=== PATIENT | female | born 1980 | race Caucasian/White ===

== ENCOUNTER 2016-10-30 18:39 | Emergency (ER) | payer OTHER ==
[2016-10-30 18:48] VITALS: BP 141/101
--- NOTE | 2016-10-30 21:09 | UC ---
Nicholas Jeffery SooYoung, scribed for Dewayne Almonte MD on 10/30/16 at 1928 . 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 Pt had a L upper tooth removed yesterday. She is scheduled to have R upper tooth removed next week. Pt is taking Amoxicillin. She took 800mg Ibuprofen last night, and Naproxen this AM, but neither have alleviated the pain. - History of Current Complaint Chief Complaint: UCDentalProblem Stated Complaint: DENTAL PAIN Time Seen by Provider: 10/30/16 19:25 Hx Obtained From: Patient Hx Last Menstrual Period: tubal ligation Onset/Duration: Still Present Severity: Severe Pain Intensity: 10 Pain Scale Used: 0-10 Numeric Alleviating: Nothing Related History: Previous Dental Care on Same Tooth - Allergies/Home Medications Allergies/Adverse Reactions: Allergies Allergy/AdvReac Type Severity Reaction Status Date / Time Ketorolac Tromethamine Allergy Agitation Verified 04/19/16 13:26 [From Toradol] Home Medications: Home Medications Amoxicillin CAP* [Amoxicillin 500 MG CAP*] 500 mg PO TID 10/30/16 [History Confirmed 10/30/16] Naproxen 500 mg PO 10/30/16 [History] PMH/Surg Hx/FS Hx/Imm Hx Previously Healthy: No GI/ History: Gastroesophageal Reflux Psychological History: Anxiety - Surgical History Surgical History: Yes Surgery Procedure, Year, and Place: t&a, choley, tubal ligation, rt orbital rebuild, dental surgeries. - Family History Known Family History: Positive: Other - mom- cancer brain and lung - Social History Occupation: Employed Full-time Lives: With Family Alcohol Use: None Substance Use Type: Prescribed Substance Use Comment - Amount & Last Used: prescription med Smoking Status (MU): Heavy Every Day Tobacco Smoker Amount Used/How Often: 5 cig per day Review of Systems Constitutional: Negative ENT: Dental Pain - bilat upper jaw All Other Systems Reviewed And Are Negative: Yes Physical Exam Triage Information Reviewed: Yes Appearance: Well-Appearing, No Pain Distress Vital Signs: Initial Vital Signs Temp 98.3 F 10/30/16 18:43 Pulse 97 10/30/16 18:43 Resp 18 10/30/16 18:43 BP 141/101 10/30/16 18:43 Pulse Ox 99 10/30/16 18:43 Vital Signs Reviewed: Yes Eye Exam: Normal - EOMI, SHARI ENT: Positive: Normal ENT inspection Dental: Positive: Other: - L upper rear jaw has hole in it where tooth is gone. R upper rear has remnants of a tooth. Gingival swelling. Neck: Positive: Supple, Nontender Respiratory: Positive: Lungs clear, Normal breath sounds Cardiovascular: Positive: RRR Abdomen Description: Positive: Nontender, Soft Musculoskeletal Exam: Normal Musculoskeletal: Positive: Strength Intact Neurological Exam: Normal - sensory/motor intact; A&Ox3 Psychological Exam: Normal - mood/affect appropriate Skin Exam: Normal - warm, dry, color reflects adequate perfusion Dental Complaint Course/Dx - Course Course Of Treatment: Pt medications reviewed this visit. Hypertensive BP reading ; patient referred to PCP within 1 day-4 wks for follow-up. PATIENT IS ON AN ANTIBIOTIC. F/U WITH HER DENTIST. - Differential Dx/Diagnosis Provider Diagnoses: DENTAL PAIN. Elevated blood pressure without diagnosis of hypertension Discharge - Discharge Plan Condition: Stable Disposition: HOME Prescriptions: oxyCODONE/Acetamin 5/325 MG* [Percocet 5/325 TAB*] 1 tab PO Q4H PRN #20 tab MDD 6 PRN Reason: Pain Patient Education Materials: Toothache (ED) Referrals: Angelito Diez [Primary Care Provider] - Additional Instructions: FOLLOW UP WITH YOUR DENTIST. GET RECHECKED FOR ANY WORSENING OF YOUR CONDITION OR QUESTIONS OR CONCERNS. Your blood pressure reading today was 141/101 which is HYPERTENSIVE. Follow-up with your primary care provider within 4 weeks for blood pressure readings and further evaluation. If The documentation as recorded by the Nicholas thomas SooYoung accurately reflects the service I personally performed and the decisions made by me, Dewayne Almonte MD.
== END 2016-10-30 19:40 | disposition home or self-care (01) ==
LOC: UCEAST 18:39
DX: K08.89 Other specified disorders of teeth and supporting structures (principal); R03.0 Elevated blood-pressure reading, without diagnosis of hypertension; Z79.2 Long term (current) use of antibiotics; Z72.0 Tobacco use
CPT/HCPCS: 99212; G0463

== ENCOUNTER 2016-11-26 19:33 | Emergency (ER) | payer OTHER ==
[2016-11-26] MEDS ORDERED: Albuterol 2.5 MG/3 ML NEB.SOL* (0.083%) INH ONE (19:59)
[2016-11-26] MEDS ORDERED: HYDROcodone/ACETAMIN 5-325 MG* 1 TAB PO ONE (20:01)
--- NOTE | 2016-11-26 20:05 | UC ---
UC Dental HPI - HPI Summary HPI Summary: Last weekend R upper molar broke off, has been having pain since then. Also has a fullness/vibration in her ears, hoarseness, and white tongue with coughing and wheezing for about 3 days. Also low abdominal pain with urination, was dx with UTI in [place] 2 weeks ago but never filled/took the antibiotic. - History of Current Complaint Hx Obtained From: Patient Hx Last Menstrual Period: age 16 ?: No Onset/Duration: Gradual Onset, Lasting Days Aggravating: Heat, Cold, Chewing <Aliyah Fong - Last Filed: 11/26/16 20:00> <Elsie Robles - Last Filed: 11/26/16 22:14> - History of Current Complaint Chief Complaint: UCGeneralIllness Stated Complaint: EAR ACHE, TOOTH ACHE, AND COUGH Time Seen by Provider: 11/26/16 19:47 - Allergies/Home Medications Allergies/Adverse Reactions: Allergies Allergy/AdvReac Type Severity Reaction Status Date / Time Ketorolac Tromethamine Allergy Agitation Verified 11/26/16 19:44 [From Toradol] PMH/Surg Hx/FS Hx/Imm Hx Previously Healthy: Yes - Surgical History Surgical History: Yes Surgery Procedure, Year, and Place: t&a, choley, tubal ligation, rt orbital rebuild, dental surgeries. - Family History Known Family History: Positive: Other - mom- cancer brain and lung - Social History Occupation: Unemployed - stayingin homeless jail Alcohol Use: None Substance Use Type: Prescribed Substance Use Comment - Amount & Last Used: prescription med Smoking Status (MU): Heavy Every Day Tobacco Smoker Amount Used/How Often: 5 cig per day <Aliyah Fong - Last Filed: 11/26/16 20:00> Review of Systems Constitutional: Negative Skin: Negative Eyes: Negative ENT: Dental Pain, Ear Ache Respiratory: Negative Cardiovascular: Negative Gastrointestinal: Abdominal Pain Genitourinary: Frequency, Urgency Motor: Negative Neurovascular: Negative Musculoskeletal: Negative Neurological: Negative Psychological: Negative All Other Systems Reviewed And Are Negative: Yes <Aliyah Fong - Last Filed: 11/26/16 20:00> Physical Exam Triage Information Reviewed: Yes Appearance: No Pain Distress, Well-Nourished Vital Signs: Initial Vital Signs Temp 98.4 F 11/26/16 19:38 Pulse 108 11/26/16 19:38 Resp 18 11/26/16 19:38 Pulse Ox 99 11/26/16 19:38 Vital Signs Reviewed: Yes Eye Exam: Normal Eyes: Positive: Conjunctiva Clear ENT: Positive: Hearing grossly normal, Pharynx normal, TMs normal - air-fluid levels noted behind TMs, Muffled/hoarse voice - hoarse, Other: - white coating on tongue, no white spots anywhere else Dental: Positive: Percussion Tenderness @ - #2, Dental Fracture @ - #2 Neck exam: Normal Respiratory: Positive: Wheezing, Expiration Cardiovascular: Positive: No Murmur, Tachycardia Abdominal Exam: Other - suprapubic tenderness Abdomen Description: Negative: CVA Tenderness (R), CVA Tenderness (L) Musculoskeletal Exam: Normal Neurological Exam: Normal Psychological Exam: Normal Skin Exam: Normal <Aliyah Fong - Last Filed: 11/26/16 20:00> Vital Signs: Initial Vital Signs Temp 98.4 F 11/26/16 19:38 Pulse 108 11/26/16 19:38 Resp 18 11/26/16 19:38 Pulse Ox 99 11/26/16 19:38 <Elsie Robles - Last Filed: 11/26/16 22:14> Re-Evaluation - Re-Evaluation First Eval Re-Evaluation Time: 20:28 Change: Improved - breathing much improved, no wheezing or coughing <Aliyah Fong - Last Filed: 11/26/16 20:00> Dental Complaint Course/Dx - Differential Dx/Diagnosis Provider Diagnoses: URI, likely viral. bronchospasm. dysuria. toothache #2 <Aliyah Fong - Last Filed: 11/26/16 20:00> Discharge <Aliyah Fong - Last Filed: 11/26/16 20:00> <Elsie Robles - Last Filed: 11/26/16 22:14> - Discharge Plan Condition: Stable Disposition: HOME Prescriptions: Albuterol HFA INHALER* [Ventolin HFA Inhaler*] 1 - 2 puff INH Q4H PRN #1 mdi PRN Reason: wheeze, cough Etodolac 200 mg PO TID #20 cap Lidocaine 2% VISCOUS* 5 ml TOPICAL Q2H PRN #1 btl PRN Reason: pain Penicillin VK 500 MG TAB(NF) [Penicillin VK 500 mg Tab] 500 mg PO QID #28 tab Patient Education Materials: Upper Respiratory Infection (ED), Dysuria (ED), Toothache (ED) Referrals: Julia FISHER,Angelito Zavala [Primary Care Provider] - Additional Instructions: Please also follow up with a dentist and 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 Go to the emergency department if you have new or worsening symptoms. Attestation Statement User Type: Provider - I was available for consult. This patient was seen by the ESTEVAN. The patient was not presented to, seen by, or examined by me. -Radha <Elsie Robles - Last Filed: 11/26/16 22:14>
[2016-11-26] MEDS ORDERED: Penicillin VK TAB* 250 MG PO ONE (20:26)
== END 2016-11-26 20:42 | disposition home or self-care (01) ==
LOC: UCEAST 19:33
DX: J06.9 Acute upper respiratory infection, unspecified (principal); J98.01 Acute bronchospasm; R30.0 Dysuria; K08.89 Other specified disorders of teeth and supporting structures; F17.210 Nicotine dependence, cigarettes, uncomplicated; Z59.0 Homelessness
CPT/HCPCS: 81003; 84702; 87077; 87086; 87186; 87491; 87591; 99213; A9270-GY; G0463

== ENCOUNTER 2017-08-13 18:19 | Emergency (ER) | payer OTHER ==
--- OUTSIDE RECORDS SUMMARY | 2017-08-13 18:26 | XMS REPORT | Continuity of Care Document ---
:1980 Author Organization [facility] Care Team Providers Name Role Phone ZHOU LANCASTER Primary Care Physician Allergies and Intolerances Code Code Allergy Type Reaction Severity Start End Status System Substance Date Date 55871 RXNorm Toradol Propensity to makes her Moderate 05/14/19 Active adverse "mean" 17 reactions to drug (disorder) RXNorm Band-Aid Drug allergy hives Mild 05/14/19 Active Plastic (disorder) 17 Medications RxNorm Medication Dose Route Instructions Start End Date Status Date Albuterol HFA 2 puff Inhalation inhaled 4 times per Active Inhaler 90 day as needed. mcg/actuation Clonidine Oral 0.1 mg oral orally 2 times per Active day 569419 Fluoxetine 40 40 mg oral orally every Active MG Oral morning Capsule 290221 Fluoxetine 40 40 mg oral orally every day Active MG Oral Capsule Magic Mouth (BMX: Viscous Active Wash Lidocaine 2%=100ml + Vsicdp=779ys + Xgnqutie=026dt, directions 10ml to swish & spit q 3 hours as needed for pain) Magic Mouth (BMX: Viscous Active Wash Lidocaine 2%=100ml + Vqkdkw=967nm + Otqxvgyh=177dy, directions 10ml to swish & spit q 3 hours as needed for pain) 269558 Naltrexone 380 380 mg Intramuscular intramuscularly Active MG Injection every month 367168 quetiapine 100 100 mg oral orally every day at Active MG Oral Tablet bedtime Problems No Data in the system Procedures No data in the system Results Laboratory Results Order: Influenza A&B PCR Specimen Source: Swab Body Site: Legend: (G,H)=High, (GG,HH,CH,#H)=Above High Threshold , (#,L)=Low, (##,CL,#L,LL)=Below Low Threshold, (C,CC,CA,#A,A)=Abnormal LOINC Test Result Flag Range Units Date 67194-2 1FLUAV RNA XXX Ql Not Detected Not Detected 08/02/2017 13:03 PCR 36427-7 1FLUBV RNA XXX Ql Not Detected Not Detected 08/02/2017 13:03 PCR Performing Lab Footnotes:[facility] - [id number] - [address] [place] [address] GABRIEL May GRUPO Social History Code Code System Social History Description Dates Observed Observation 638526981 SNOMED CT Current Smoking Current every day Status smoker UNK AdministrativeGender Sex Assigned At Unknown Vital Signs Code Code System Vitals Value Date 8310-5 LOINC Body Temperature 99.2 [degF] 08/02/2017 8865-8 LOINC Pulse Rate 98 {beats}/min 08/02/2017 9279-1 LOINC Respiratory Rate 20 /min 08/02/2017 63423-1 LOINC O2% BldC Oximetry 96 % 08/02/2017 8480-6 LOINC BP Systolic 128 mm[Hg] 08/02/2017 8462-4 LOINC BP Diastolic 85 mm[Hg] 08/02/2017 8302-2 LOINC Height 63 [in_i] 08/02/2017 22696-4 LOINC Weight 68 kg 08/02/2017 3140-1 LOINC Body surface area Derived from formula 1.71 m2 08/02/2017 22332-7 LOINC BMI (Body Mass Index) 26.5 kg/m2 08/02/2017 Goals Section No data in the system Health Concerns No data in the systemEncounter Diagnosis Date Code Code System Diagnosis Status K14.0 ICD10 GLOSSITIS Active Advance Directives PT STATES NO ADVANCE DIRECTIVES Directive Type Effective Date Scientific Software Engineer Notes Supporting Document Name Address Phone No Directive Type 08/02/2017 12:28:00 Not Specified Not Specified Not Specified None No specified PM *RHIO - CONSENT IS YES Directive Type Effective Date Scientific Software Engineer Notes Supporting Document Name Address Phone No Directive Type 12/17/2016 2:00:40 Not Specified Not Specified Not Specified None No specified PM Family History Family History Unknown Functional Status No data in the system Immunizations No data in the system Medical Equipment No data in the system Mental Status Code Cognitive Condition Code System Date Status No acute distress SNOMED CT 08/02/2017 Active Oriented x [address] 08/02/2017 Active Skin warm & dry SNOMED CT 08/02/[address] 08/02/2017 Active Assessment and Plan Assessments No data in the systemPlan Of Treatment No data in the systemPending Tests No data in the system Hospital Discharge Instructions No data in the system Reason for Visit Reason for Visit Throat Swelling
--- OUTSIDE RECORDS SUMMARY | 2017-08-13 18:26 | XMS REPORT | Continuity of Care Document ---
:1980 Author Organization [facility] Care Team Providers Name Role Phone UNKNOWN, UNKNOWN Primary Care Physician Unavailable Allergies and Intolerances Code Code Allergy Type Reaction Severity Start End Status System Substance Date Date 99853 RXNorm Toradol Propensity to makes her Moderate 05/14/19 Active adverse "mean" 17 reactions to drug (disorder) RXNorm Band-Aid Drug allergy hives Mild 05/14/19 Active Plastic (disorder) 17 Medications RxNorm Medication Dose Route Instructions Start End Date Status Date Clonidine Oral 0.1 mg oral orally 2 times per Active day 451210 Fluoxetine 40 40 mg oral orally every day Active MG Oral Capsule 691260 Naltrexone 380 380 mg Intramuscular intramuscularly Active MG Injection every month 509814 quetiapine 100 100 mg oral orally every day at Active MG Oral Tablet bedtime Problems No Data in the system Procedures No data in the system Results Microbiology Results w Susceptibilities Order: CULTURE GROUP A STREP Specimen Source: Swab Body Site: Entire throat (surface region of neck )Cultural Observations:Streptococcus pyogenes (Group A) was NOT [id number] Lab Footnotes:[facility] - [id number] - [address] [place] [address] GABRIEL LOMBARDO Social History Code Code System Social History Description Dates Observed Observation 263039858 SNOMED CT Current Smoking Unknown if ever Status smoked UNK AdministrativeGender Sex Assigned At Unknown Vital Signs No data in the system Goals Section No data in the system Health Concerns No data in the systemEncounter Diagnosis Date Code Code System Diagnosis Status R05 ICD10 COUGH Active Advance Directives *RHIO - CONSENT IS YES Directive Type Effective Date Laboratory Technician Notes Supporting Document Name Address Phone No Directive Type 12/17/2016 2:00:40 Not Specified Not Specified Not Specified None No specified PM Family History Family History Unknown Functional Status No data in the system Immunizations No data in the system Medical Equipment No data in the system Mental Status No data in the system Assessment and Plan Assessments No data in the systemPlan Of Treatment No data in the systemPending Tests No data in the system Hospital Discharge Instructions No data in the system Reason for Visit Reason for Visit LAB
--- OUTSIDE RECORDS SUMMARY | 2017-08-13 18:26 | XMS REPORT | Continuity of Care Document ---
:1980 Author Organization [facility] Care Team Providers Name Role Phone JEREMIAS NORMAN Admitting Physician JEREMIAS NORMAN Attending Physician UNKNOWN, UNKNOWN Primary Care Physician Unavailable Allergies and Intolerances Code Code Allergy Type Reaction Severity Start End Status System Substance Date Date 70501 RXNorm Toradol Propensity to makes her Moderate [...] oral orally 2 times per Active day 049410 Fluoxetine 40 40 mg oral orally every day Active MG Oral Capsule 024264 Fluoxetine 40 40 mg oral orally every Active MG Oral morning Capsule Magic Mouth (BMX: Viscous Active Wash Lidocaine 2%=100ml + Onkexp=217np + Sqpgwtmg=141qu, directions 10ml to swish & spit q 3 hours as needed for pain) Magic Mouth (BMX: Viscous Active Wash Lidocaine 2%=100ml + Jwntrg=701gh + Hnnopmqq=897iz, directions 10ml to swish & spit q 3 hours as needed for pain) 594587 Naltrexone 380 380 mg Intramuscular intramuscularly Active MG Injection every month 402709 quetiapine 100 100 mg oral orally every day at Active MG Oral Tablet bedtime Problems No Data in the system Procedures No data in the system Results No data in the system Social History Code Code System Social History Description Dates Observed Observation 333408576919024 SNOMED CT Current Smoking Current some day Status smoker UNK AdministrativeGender Sex Assigned At Unknown Vital Signs No data in the system Goals Section No data in the system Health Concerns No data in the systemEncounter Diagnosis Date Code Code System Diagnosis Status Z53.21 ICD10 PROC&TX NOT CARRIED OUT PT LEAVE Active Advance Directives PT STATES NO ADVANCE DIRECTIVES Directive Type Effective Date Keyboard Specialist Notes Supporting Document Name Address Phone No Directive Type 08/02/2017 12:28:00 Not Specified Not Specified Not Specified None No specified PM *RHIO - CONSENT IS YES Directive Type Effective Date Keyboard Specialist Notes Supporting Document Name Address Phone No [...] system Reason for Visit Reason for Visit Upper Respiratory Tract Sx
[2017-08-13 18:39] VITALS: BP 126/91
--- NOTE | 2017-08-13 19:22 | UC ---
Back Pain HPI - HPI Summary HPI Summary: Patient presents with 2 days of right low back pain radiating down her leg. 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 She denies any discrete injury. States she has some occasional numbness and tingling in her foot but denies any loss of bowel or bladder control. No saddle anesthesia. Has had similar back pain in the past. She is also been experiencing some reflux symptoms that have not been responding to Tums. She also reports a history of reflux in the past. Denies chest pain, shortness of breath, sweats, dizziness. - History of Current Complaint Chief Complaint: UCBackPain Stated Complaint: BACK PAIN, AND ACID REFLUX Time Seen by Provider: 08/13/17 18:46 Hx Obtained From: Patient Hx Last Menstrual Period: 08/10/17 Onset/Duration: Sudden Onset, Lasting Days, Still Present Timing: Constant Severity Initially: Moderate Severity Currently: Moderate Pain Intensity: 6 Pain Scale Used: 0-10 Numeric Back Pain: Is Discrete @ - RIGHT LOW BACK Character: Sharp Aggravating Factor(s): Movement Alleviating Factor(s): Rest Associated Signs And Symptoms: Positive: Numbness, Tingling. Negative: Swelling , Redness, Weakness, Bladder Incontinence, Bowel Incontinence - Allergies/Home Medications Allergies/Adverse Reactions: Allergies Allergy/AdvReac Type Severity Reaction Status Date / Time ketorolac [From Toradol] Allergy Agitation Verified 08/13/17 18:39 Home Medications: Home Medications FLUoxetine CAP* [Prozac CAP*] 40 mg PO DAILY 08/13/17 [History Confirmed ] QUEtiapine TAB* [Seroquel TAB*] 100 mg PO BEDTIME 08/13/17 [History Confirmed ] cloNIDine TAB* [Catapres 0.1 MG TAB*] 0.1 mg PO BID 08/13/17 [History Confirmed 08/13/17] PMH/Surg Hx/FS Hx/Imm Hx Psychological History: Depression - Surgical History Surgical History: Yes Surgery Procedure, Year, and Place: t&a, choley, tubal ligation, rt orbital rebuild, dental surgeries. - Family History Known Family History: Positive: Other - mom- cancer brain and lung - Social History Alcohol Use: None Substance Use Type: None Substance Use Comment - Amount & Last Used: prescription med Smoking Status (MU): Heavy Every Day Tobacco Smoker Amount Used/How Often: 5 cig per day Review of Systems Constitutional: Negative Skin: Negative Respiratory: Negative Cardiovascular: Negative Gastrointestinal: Negative Genitourinary: Negative Musculoskeletal: Arthralgia, Myalgia All Other Systems Reviewed And Are Negative: Yes Physical Exam Triage Information Reviewed: Yes Appearance: Well-Appearing, No Pain Distress, Well-Nourished Vital Signs: Initial Vital Signs Temp 99.7 F 08/13/17 18:33 Pulse 91 08/13/17 18:33 Resp 21 08/13/17 18:33 BP 126/91 08/13/17 18:33 Pulse Ox 97 08/13/17 18:33 Vital Signs Reviewed: Yes Eyes: Positive: Conjunctiva Clear ENT: Positive: Hearing grossly normal Neck: Positive: Supple Respiratory: Positive: No respiratory distress, No accessory muscle use Cardiovascular: Positive: Pulses Normal Abdomen Description: Positive: Soft Musculoskeletal: Positive: ROM Intact, No Edema, Other: - POSITIVE STRAIGHT LEG RAISE - RIGHT. Neurological: Positive: Alert Psychological: Positive: Age Appropriate Behavior Skin: Negative: rashes Back Pain Course/Dx - Course Course Of Treatment: We'll treat low back pain with muscle relaxer, NSAIDS and prednisone. There may be some radiculopathy here. Advised patient to follow up with her PCP if her symptoms do not improve she may benefit from advanced imaging. Patient questioned about her reflux symptoms and states she is sure this is reflux and is not at all concerned about any cardiac etiology. States she has had the symptoms in the past and just needs stronger reflux medication. Patient advised to go to the ER without fail if she develops any chest pain, shortness of breath, dizziness or any other concerning symptoms. - Differential Dx/Diagnosis Provider Diagnoses: 1. ACUTE LOW BACK PAIN. 2. GERD Discharge - Sign-Out/Discharge Documenting (check all that apply): Discharge - Discharge Plan Condition: Stable Disposition: HOME Prescriptions: Cyclobenzaprine TAB* [Flexeril TAB*] 10 mg PO BID PRN #30 tab PRN Reason: Pain Esomeprazole(NF) [NexIUM(NF)] 40 mg PO DAILY #30 cap Meloxicam [Mobic] 7.5 mg PO BID PRN #30 tab PRN Reason: Pain predniSONE TAB* [Deltasone TAB*] 50 mg PO DAILY #5 tab Patient Education Materials: Low Back Strain (ED), Gastroesophageal Reflux Disease (ED), Lumbar Radiculopathy (ED) Referrals: Julia FISHER,Angelito Zavala [Primary Care Provider] - If Needed Additional Instructions: If your symptoms do not improve with treatment follow up with your PCP. You may benefit from imaging at that time. BE SURE TO GO THROUGH SLOW RANGE OF MOTION AND STRETCHING EXERCISES DAILY YOU ARE ABLE TO PREVENT STIFFENING UP AND MAKING THE DISCOMFORT WORSE. TAKE THE REFLUX MEDICINE IN THE MORNING (IDEALLY AT LEAST 30 MINUTES BEFORE YOU EAT). EAT SLOWLY. STAY UPRIGHT AT LEAST 30 MINUTES AFTER EATING. EAT SMALLER, MORE FREQUENT MEALS OPPOSED TO LARGE INFREQUENT MEALS. AVOID POSSIBLE TRIGGER FOODS - GREASY, SPICY, ACIDIC FOODS. CAFFEINE, ALCOHOL. - Billing Disposition and Condition Condition: STABLE Disposition: HOME
== END 2017-08-13 19:15 | disposition home or self-care (01) ==
LOC: UCEAST 18:19
DX: M54.5 Low back pain (principal); K21.9 Gastro-esophageal reflux disease without esophagitis; R20.0 Anesthesia of skin; R20.2 Paresthesia of skin; F32.9 Major depressive disorder, single episode, unspecified; Z88.5 Allergy status to narcotic agent; F17.210 Nicotine dependence, cigarettes, uncomplicated
CPT/HCPCS: 99212; G0463

== ENCOUNTER 2017-10-23 22:32 | Emergency (ER) | payer OTHER ==
--- OUTSIDE RECORDS SUMMARY | 2017-10-23 22:43 | XMS REPORT | Continuity of Care Document ---
:1980 Author Organization [facility] Support Name Relationship Address Phone LEONORA GUILLAUME significant other [address] [place] [address] LEONORA GUILLAUME significant other [address] [place] [address] Allergies and Intolerances Code Code Allergy Type Reaction Severity Start End Status System Substance Date Date 85711 RXNorm Toradol Propensity to makes her Moderate [...] oral orally 2 times per Active day 544904 Fluoxetine 40 40 mg oral orally every Active MG Oral morning Capsule Magic Mouth (BMX: Viscous Active Wash Lidocaine 2%=100ml + Hcxsvy=858kk + Uodkebxk=420mk, directions 10ml to swish & spit q 3 hours as needed for pain) Magic Mouth (BMX: Viscous Active Wash Lidocaine 2%=100ml + Bjhjdj=192gx + Temjojyr=360gb, directions 10ml to swish & spit q 3 hours as needed for pain) 703372 Naltrexone 380 380 mg Intramuscular intramuscularly Active MG Injection every month 063965 quetiapine 100 100 mg oral orally every day at Active MG Oral Tablet bedtime Problems No Data in the system Procedures No data in the system Results No data in the system Social History Code Code System Social History Description Dates Observed Observation 93063731 SNOMED CT Current Smoking Smoker, current Status status unknown UNK AdministrativeGender Sex Assigned At Unknown Vital Signs Code Code System Vitals Value Date 8310-5 LOINC Body Temperature 99.1 [degF] 10/04/2017 8865-8 LOINC Pulse Rate 89 {beats}/min 10/04/2017 9279-1 [facility] Respiratory Rate 18 /min 10/04/2017 54425-5 [facility] O2% BldC Oximetry 97 % 10/04/2017 8480-6 [facility] BP Systolic 128 mm[Hg] 10/04/2017 8462-4 [facility] BP Diastolic 87 mm[Hg] 10/04/2017 8302-2 [facility] Height 63 [in_i] 10/04/2017 06935-0 [facility] Weight 68 kg 10/04/2017 3140-1 [facility] Body surface area Derived from formula 1.71 m2 10/04/2017 62312-9 [facility] BMI (Body Mass Index) 26.5 kg/m2 10/04/2017 Goals Section No data in the system Health Concerns No data in the systemEncounter Diagnosis Date Code Code System Diagnosis Status G43.909 ICD10 MIGRAINE UNS NOT INTRACT W/O SM Active Advance Directives PT STATES NO ADVANCE DIRECTIVES 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
[2017-10-24] MEDS ORDERED: Ibuprofen TAB* 800 MG PO ONE (00:44)
[2017-10-24 01:23] VITALS: BP 128/90
--- NOTE | 2017-10-24 02:08 | ED ---
Lower Extremity - HPI Summary HPI Summary: Patient is a 37-year-old female who presents to the ER for a left wrist injury and a right foot injury that occurred today. Patient states she tripped going down the steps and twisted right foot and landed on left hand. No other injuries were sustained. Patient denying pain. Symptoms are mild in severity. Moving and walking makes symptoms worse. Rest makes symptoms better. - History of Current Complaint Chief Complaint: EDExtremityLower Stated Complaint: WRIST PAIN/ANKLE PAIN Time Seen by Provider: 10/23/17 23:15 Hx Obtained From: Patient Hx Last Menstrual Period: 08/10/17 Pain Intensity: 3 Pain Scale Used: 0-10 Numeric - Allergies/Home Medications Allergies/Adverse Reactions: Allergies Allergy/AdvReac Type Severity Reaction Status Date / Time ketorolac [From Toradol] Allergy Agitation Verified 08/13/17 18:39 PMH/Surg Hx/FS Hx/Imm Hx Previously Healthy: Yes Endocrine/Hematology History: Denies: Hx Diabetes, Hx Thyroid Disease Cardiovascular History: Denies: Hx Hypertension Respiratory History: Reports: Hx Pneumonia - currently 06/20/2015 - on meds Denies: Hx Asthma, Hx Chronic Obstructive Pulmonary Disease (COPD) GI History: Reports: Hx Gastroesophageal Reflux Disease - induced by acetaminophen Denies: Hx Ulcer Musculoskeletal History: Reports: Other Musculoskeletal History - multiple chronic pain areas Psychiatric History: Reports: Hx Anxiety - buspar, ativan, "anti-depressant" - Surgical History Surgery Procedure, Year, and Place: t&a, choley, tubal ligation, rt orbital rebuild, dental surgeries. Infectious Disease History: No Infectious Disease History: Denies: Hx Hepatitis, Hx Human Immunodeficiency Virus (HIV), Traveled Outside the [place] in Last 30 Days - Family History Known Family History: Positive: Other - mom- cancer brain and lung - Social History Occupation: Employed Full-time Lives: With Family Alcohol Use: None Substance Use Type: Reports: None Substance Use Comment - Amount & Last Used: prescription med Smoking Status (MU): Heavy Every Day Tobacco Smoker Amount Used/How Often: 5 cig per day Review of Systems Positive: Other - Left wrist pain. Right foot pain. Negative: Weakness, Paresthesia, Numbness All Other Systems Reviewed And Are Negative: Yes Physical Exam Triage Information Reviewed: Yes Vital Signs On Initial Exam: Initial Vitals Temp Pulse Resp BP Pulse Ox 97.9 F 91 20 143/97 98 10/23/17 22:34 10/23/17 22:34 10/23/17 22:34 10/23/17 22:34 10/23/17 22:34 Vital Signs Reviewed: Yes Appearance: Positive: Well-Appearing - Pt. sitting on bed in NAD. Significant other present. Skin: Positive: Warm, Dry Head/Face: Positive: Normal Head/Face Inspection Eyes: Positive: Normal Neck: Positive: Supple Musculoskeletal: Positive: Other - Pain on palpation to the right 1st metatarsal. No proximal injuries. Pain and mild edema over the left scaphoid. Extremities are neurovascularly intact. Neurological: Positive: Normal, CN Intact II-III Psychiatric: Positive: Affect/Mood Appropriate Diagnostics - Vital Signs Vital Signs Temp Pulse Resp BP Pulse Ox 10/24/17 01:00 99.1 F 79 16 128/90 100 10/24/17 00:48 79 128/90 97 10/24/17 00:44 79 133/98 97 10/24/17 00:20 84 97 10/24/17 00:18 78 148/106 96 10/23/17 23:49 123/93 10/23/17 23:18 81 115/93 97 10/23/17 23:00 89 98 10/23/17 22:55 86 97 10/23/17 22:48 95 147/104 97 10/23/17 22:34 97.9 F 91 20 143/97 98 - Laboratory Lab Statement: Any lab studies that have been ordered have been reviewed, and results considered in the medical decision making process. Lower Extremity Course/Dx - Course Course Of Treatment: Patient presenting with minor right foot and left wrist injuries after falling. X-rays reviewed by myself and Dr. Little are negative for fracture or dislocation. Given patient's pain to the left scaphoid, Velcro wrist splint was placed. Postop she was placed on right foot. Advised patient she will need to follow up with orthopedics for repeat imaging on left wrist to rule out occult fracture. Orthopedic information was provided. To ice and elevate. Tylenol or Motrin for pain as directed. - Diagnoses Differential Diagnosis/HQI/PQRI: Positive: Contusion, Fracture (Closed), Sprain , Strain Provider Diagnoses: Foot sprain, Wrist injury Discharge - Sign-Out/Discharge Documenting (check all that apply): Discharge/Admit/Transfer - Discharge Plan Condition: Good Disposition: HOME Patient Education Materials: Wrist Injury (ED), Foot Sprain (ED), Scaphoid Fracture (ED) Referrals: Angelito Diez [Primary Care Provider] - Sagar Duran MD [Medical Doctor] - Additional Instructions: Schedule a follow up appointment with orthopedic to have wrist recheck in 7-10 days Wear splints for comfort Ice and elevate Tylenol or Motrin for pain as directed - Billing Disposition and Condition Condition: GOOD Disposition: Home
--- NOTE | 2017-10-24 08:29 | RAD ---
Indication: Right foot injury. The views of the right foot demonstrates deformity of the fifth metatarsal. When compared to previous exam of April 08, 2016 this deformity is unchanged. There is a new Fracture proximal end of the proximal phalanx of the fifth digit that is present IMPRESSION: Deformity of the fifth metatarsal is unchanged from prior exam however there is a new fracture of the proximal end of the proximal phalanx of the fifth digit.
--- NOTE | 2017-10-24 08:45 | RAD ---
Indication: Left wrist injury after fall 3 views of the wrist demonstrates no fracture. No other bone or joint abnormality is identified. IMPRESSION: NO FRACTURE OF THE WRIST IS NOTED.
== END 2017-10-24 01:00 | disposition home or self-care (01) ==
LOC: ED 22:32
DX: S93.601A Unspecified sprain of right foot, initial encounter (principal); S69.92XA Unspecified injury of left wrist, hand and finger(s), initial encounter; S92.511A Displaced fracture of proximal phalanx of right lesser toe(s), initial encounter for closed fracture; F17.210 Nicotine dependence, cigarettes, uncomplicated; W10.9XXA Fall (on) (from) unspecified stairs and steps, initial encounter; Y92.9 Unspecified place or not applicable; K21.9 Gastro-esophageal reflux disease without esophagitis; F41.9 Anxiety disorder, unspecified
CPT/HCPCS: 99283; A9270-GY

== ENCOUNTER 2017-12-03 18:14 | Emergency (ER) | payer OTHER ==
--- OUTSIDE RECORDS SUMMARY | 2017-12-03 18:24 | XMS REPORT | Continuity of Care Document ---
:1980 Author Organization [facility] Care Team Providers Name Role Phone JEREMIAS NORMAN Admitting Physician JEREMIAS NORMAN Attending Physician Allergies and Intolerances Code Code Allergy Type Reaction Severity Start End Status System Substance Date Date 58931 RXNorm Toradol Propensity to makes her Moderate 05/14/19 Active adverse "mean" 17 reactions to drug (disorder) RXNorm Band-Aid Drug allergy hives Mild 05/14/19 Active Plastic (disorder) 17 Medications RxNorm Medication Dose Route Instructions Start End Date Status Date 037377 Acetaminophen 325 1 tab oral orally every 4 Active MG / Hydrocodone hours as needed. Bitartrate 5 MG Oral Tablet Albuterol HFA 2 puff Inhalation inhaled 4 times Active Inhaler 90 per day as mcg/actuation needed. 557868 Amoxicillin 875 1 tab oral orally 2 times Active MG / Clavulanate per day 125 MG Oral Tablet 407205 Fluoxetine 40 MG 40 mg oral orally every Active Oral Capsule morning 19830602 lamotrigine 100 100 mg oral orally every day Active MG Oral Tablet 227778 quetiapine 100 MG 100 mg oral orally every day Active Oral Tablet at bedtime 088752 Prazosin 1 MG 1 mg oral orally 2 times Completed Oral Capsule per day Problems No Data in the system Procedures No data in the system Results No data in the system Social History Code Code System Social History Description Dates Observed Observation 588673094148238 SNOMED CT Current Smoking Current some day Status smoker UNK AdministrativeGender Sex Assigned At Unknown Vital Signs No data in the system Goals Section No data in the system Health Concerns No data in the systemEncounter Diagnosis Date Code Code System Diagnosis Status Z53.21 ICD10 PROC&TX NOT CARRIED OUT PT LEAVE Active Advance Directives PT STATES NO ADVANCE DIRECTIVES Directive Type Effective Date Maker Up Folding Notes Supporting Document Name Address Phone No Directive Type 08/02/2017 12:28:00 Not Specified Not Specified Not Specified None No specified PM *RHIO - CONSENT IS YES Directive Type Effective Date Maker Up Folding Notes Supporting Document Name Address Phone No [...] system Reason for Visit Reason for Visit Illness
[2017-12-03 18:35] VITALS: BP 123/83
== END 2017-12-03 19:17 | disposition left against medical advice (07) ==
LOC: UCCORT 18:14
DX: R51 Headache (principal); Z53.21 Procedure and treatment not carried out due to patient leaving prior to being seen by health care provider

== ENCOUNTER 2017-12-05 12:42 | Emergency (ER) | payer OTHER ==
--- OUTSIDE RECORDS SUMMARY | 2017-12-05 12:58 | XMS REPORT | Continuity of Care Document ---
:1980 Author Organization [facility] Care Team Providers Name Role Phone JEREMIAS NORMAN Admitting Physician JEREMIAS NORMAN Attending Physician Allergies and Intolerances Code Code Allergy Type Reaction Severity Start End Status System Substance Date Date 13968 RXNorm Toradol Propensity to makes her Moderate 05/14/19 Active adverse "mean" 17 reactions to drug (disorder) RXNorm Band-Aid Drug allergy hives Mild 05/14/19 Active Plastic (disorder) 17 Medications RxNorm Medication Dose Route Instructions Start End Status Date Date 143238 Acetaminophen 1 tab oral orally every 4 Active 325 MG / hours as needed. Hydrocodone Bitartrate 5 MG Oral Tablet Albuterol HFA 2 puff Inhalation inhaled 4 times Active Inhaler 90 per day as needed. mcg/actuation 491776 Amoxicillin 875 1 tab oral orally 2 times per Active MG / Clavulanate day 125 MG Oral Tablet 869859 Fluoxetine 40 MG 40 mg oral orally every Active Oral Capsule morning 19830602 lamotrigine 100 100 mg oral orally every day Active MG Oral Tablet 136796 quetiapine 100 100 mg oral orally every day Active MG Oral Tablet at bedtime Clonidine Oral 0.1 mg oral orally 2 times per Completed day 608611 Naltrexone 380 380 mg Intramuscular intramuscularly Completed MG Injection every month 325118 Prazosin 1 MG 1 mg oral orally 2 times per Completed Oral Capsule day Problems No Data in the system Procedures No data in the system Results No data in the system Social History Code Code System Social History Description Dates Observed Observation 78190029 SNOMED CT Current Smoking Smoker, current Status status unknown UNK AdministrativeGender Sex Assigned At Unknown Vital Signs Code Code System Vitals Value Date 8310-5 LOINC Body Temperature 97.8 [degF] 11/18/2017 8865-8 LOINC Pulse Rate 78 {beats}/min 11/18/2017 9279-1 [facility] Respiratory Rate 16 /min 11/18/2017 46200-2 [facility] O2% BldC Oximetry 98 % 11/18/2017 8480-6 [facility] BP Systolic 155 mm[Hg] 11/18/2017 8462-4 [facility] BP Diastolic 88 mm[Hg] 11/18/2017 8302-2 [facility] Height 63 [in_i] 11/18/2017 09330-2 [facility] Weight 68 kg 11/18/2017 3140-1 [facility] Body surface area Derived from formula 1.71 m2 11/18/2017 68688-1 [facility] BMI (Body Mass Index) 26.5 kg/m2 11/18/2017 Goals Section No data in the system Health Concerns No data in the systemEncounter Diagnosis Date Code Code System Diagnosis Status L08.9 ICD10 LOCAL INFECT SKIN SUBQ TISSUE UNS Active Advance Directives PT STATES NO ADVANCE DIRECTIVES 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 Supporting Document Name Address Phone No Directive Type 08/02/2017 12:28:00 Not Specified Not Specified Not Specified None No specified PM *RHIO - CONSENT IS YES 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 Supporting Document Name Address Phone No Directive Type 12/17/2016 2:00:40 Not Specified Not Specified Not Specified None No specified PM Family History Family History Unknown Functional Status Code Functional Condition Code System Date Status Independent adls [facility] CT 11/18/2017 Active Immunizations No data in the system Medical Equipment No data in the system Mental Status Code Cognitive Condition Code System Date Status Oriented x [address] 11/18/2017 Active No acute distress SNOMED CT 11/18/[address] 11/18/2017 Active Assessment and Plan Assessments No data in the systemPlan Of Treatment No data in the systemPending Tests No data in the system Hospital Discharge Instructions No data in the system Reason for Visit Reason for Visit Mouth Pain
[2017-12-05 14:20] VITALS: BP 124/84
== END 2017-12-05 14:26 | disposition left against medical advice (07) ==
LOC: UCCORT 12:42
DX: S01.81XD Laceration without foreign body of other part of head, subsequent encounter (principal); Z53.21 Procedure and treatment not carried out due to patient leaving prior to being seen by health care provider